=== PATIENT | female | born 1985 | race Two or more races ===

== ENCOUNTER 2023-04-29 20:04 | Emergency (ER) | payer BC, OTHER ==
[~2023-04-29] VITALS: Ht 154.9 cm; Wt 61.0 kg
[2023-04-29 22:46] LABS: Basophils # (auto) 0.1 10 ^3/uL (0-0.2); Basophils % (auto) 0.9 % (0.0-2.0); Eosinophils # (auto) 0.3 10 ^3/uL (0-0.8); Eosinophils % (auto) 3.1 % (0.0-7.0); Hematocrit 42.5 % (36.0-46.0); Hemoglobin 14.5 g/dL (12.2-16.2); Lymphocytes # (auto) 3.1 10 ^3/uL (0.4-5.4); Lymphocytes % (auto) 34.5 % (10.0-50.0); Mean Corpuscular Hemoglobin 30.6 pg (28.0-32.0); Mean Corpuscular Hgb Conc. 34.1 g/dL (32.0-36.0); Mean Corpuscular Volume 89.8 fL (80.0-100.0); Monocytes # (auto) 0.4 10 ^3/uL (0-1.3); Monocytes % (auto) 4.3 % (0.0-12.0); Neutrophils # (auto) 5.2 10 ^3/uL (1.6-8.6); Neutrophils % (auto) 57.2 % (37.0-80.0); Nucleated Red Blood Cells % 0.1 %; Red Blood Cells 4.73 10^6/uL (4.0-5.20); Red Cell Distribution Width 12.6 % (11.8-14.3); White Blood Cell 9.1 10^3/uL (4.4-10.8)
[2023-04-29 23:03] LABS: Albumin 3.9 g/dL (3.4-5.0); BUN/Creatinine Ratio 7.9 (10.0-20.0); Potassium 3.7 mmol/L (3.5-5.1)
[2023-04-29 23:06] LABS: Bilirubin, Total 0.2 mg/dL (0.2-1.0); Total Protein 7.7 g/dL (6.4-8.2)
[2023-04-30] MEDS ORDERED: GABA600T PO (01:53)
[2023-04-30 03:55] VITALS: BP 134/89; PULSE 86; RESP 18; TEMP 98.4; O2SAT 99
== END 2023-04-30 04:00 | disposition home or self-care (01) ==
LOC: ER 20:06
DX: R20.2 Paresthesia of skin (principal)
CPT/HCPCS: 36415; 70450; 80053; 85025